=== PATIENT | male | born 1985 | race Caucasian/White ===

== ENCOUNTER 2019-10-23 14:26 | Inpatient (IN) | payer MEDICAID ==
[2019-10-23 16:00] VITALS: BP 158/102
[2019-10-23 16:49] LABS: BASO % 0.4 % (0.0-1.0); EOS # 0.1 10*3/uL (0.0-0.4); EOS % 0.7 % (1.0-4.0); HEMATOCRIT 46.5 % (42.0-52.0); HEMOGLOBIN 15.1 g/dl (14.0-18.0); LYMPH # 1.8 10*3/uL (1.3-4.4); LYMPH % 27.5 % (27.0-41.0); MEAN CELL VOLUME 86.3 fl (80.0-94.0); MEAN CORPUSCULAR HGB CONC 32.5 g/dl (33.0-37.0); MEAN PLATELET VOLUME 10.1 fl (9.6-12.3); MONO # 0.8 10*3/uL (0.1-1.0); MONO % 12.1 % (3.0-9.0); NEUT # 3.9 10*3/uL (2.3-7.9); NEUT % 59.2 % (47.0-73.0); PLATELET COUNT AUTOMATED 204 10*3/uL (130-400); RED BLOOD COUNT 5.39 10*6/uL (4.50-5.90); RED CELL DISTRI WIDTH 13.9 % (0-14.5); WHITE BLOOD COUNT 6.7 10*3/uL (4.8-10.8)
[2019-10-23 17:01] LABS: INTERNATIONAL NORM RATIO 0.9 (2.0-3.5)
[2019-10-23 17:04] LABS: ALBUMIN 4.2 gm/dl (3.1-4.5); ALKALINE PHOSPHATASE 79 U/L (45-117); BUN 14 mg/dl (7-24); CHLORIDE 108 mmol/L (98-107); CREATININE 0.99 mg/dL (0.70-1.30); POTASSIUM 3.9 mmol/L (3.5-5.1); SGOT/AST 14 IU/L (3-35); SGPT/ALT 22 U/L (12-78); SODIUM 143 mmol/L (136-145); TOTAL PROTEIN 7.4 gm/dL (6.4-8.2)
[2019-10-23 17:05] LABS: ETHYL ALCOHOL < 3.0 mg/dl (<3)
[2019-10-23 19:12] LABS: BILIRUBIN NEGATIVE (NEGATIVE); BLOOD NEGATIVE (NEGATIVE); CLARITY CLEAR (CLEAR); COLOR YELLOW (YELLOW); GLUCOSE NEGATIVE (NEGATIVE); KETONE NEGATIVE (NEGATIVE); LEUKO ESTERASE NEGATIVE (NEGATIVE); NITRITE NEGATIVE (NEGATIVE); SPECIFIC GRAVITY >= 1.030 (1.005-1.030); UROBILINOGEN 0.2 E.U./dl (0.2-1.0)
[2019-10-23 19:21] LABS: URINE AMPHETAMINES < 1000 (1000ng/ml); URINE BARBITURATES < 200 (200ng/ml); URINE BENZODIAZEPINES < 200 (200ng/ml); URINE CANNABINOIDS (THC) < 50 (50ng/ml); URINE COCAINE < 300 (300ng/ml); URINE METHADONE < 300 (300ng/ml); URINE OPIATES < 300 (300ng/ml)
[2019-10-23 19:22] LABS: URINE PHENCYCLIDINE < 25 (25ng/ml)
[2019-10-23 19:28] LABS: EPITHELIAL CELLS 0-2; MUCOUS 2+; WBC 0-2 wbc/hpf (0-5)
[2019-10-24] VITALS: BP 141/76
[2019-10-24 08:00] VITALS: BP 136/80
[2019-10-24 12:00] VITALS: BP 140/86
[2019-10-24 16:00] VITALS: BP 115/70
[2019-10-24 20:00] VITALS: BP 150/82
[2019-10-25] VITALS: BP 146/93
[2019-10-25 08:00] VITALS: BP 112/70
[2019-10-25 16:00] VITALS: BP 131/72
[2019-10-26] VITALS: BP 127/77
[2019-10-26 08:00] VITALS: BP 128/75
[2019-10-26] MEDS ORDERED: LISINOPRIL5 MG PO (10:27)
[2019-10-26] MEDS ORDERED: ATARAX,VISTARIL50 MG PO (10:27)
[2019-10-26] MEDS ORDERED: ZOFRAN 4 MG ED2 TAB PO (10:27)
== END 2019-10-26 11:56 | disposition home or self-care (01) | DRG 773 ==
LOC: 4E 14:26 → 5E 14:41
PROVIDERS: ADMIT Internal Medicine
DX: F11.23 Opioid dependence with withdrawal (principal); R03.0 Elevated blood-pressure reading, without diagnosis of hypertension; R73.9 Hyperglycemia, unspecified; I10 Essential (primary) hypertension; E87.8 Other disorders of electrolyte and fluid balance, not elsewhere classified